=== PATIENT | female | born 2000 | race Caucasian/White ===

== ENCOUNTER 2021-04-09 13:20 | Inpatient (IN) | payer BC, SELFPAY ==
[~2021-04-09] VITALS: Ht 167.6 cm; Wt 47.5 kg
[2021-04-09 16:00] VITALS: BP 115/67
--- NOTE | 2021-04-09 16:42 | HPEPDOC ---
General Date of Admission Apr 09, 2021 at 15:18 Date of Service: Apr 09, 2021 Chief Complaint The patient is a 21-year-old female admitted with a reason for visit of . Source: Patient History of Present Illness 21 year old female presented to [facility] ED on 04/08/21 and 04/09/21 for abdominal pain for 5 to 6 days. On 04/08/21 she was manged in ED , had a CT abd and pelvis done which was negative and was discharged home. She went back to ED in the am on 04/09/21 because of worsening abdomonal pain with nausea and an episode of vomiting at home. Repeat CT abdomen and pelvis with IV contrast showed 2 separate foci of small bowel to small bowel intussusception in the left mid abdomen in the jejunum. Martina was transferred to our hospital for surgical evaluation. Patient described the pair as crampy coming in waves in the epigastrium and left upper abdomen will start with less intensity and reach a peak when it is 8/10 in intensity then slowly come down. then after a few minutes another wave will start. There is no radiation. Patient also complains of constipation. Last bowel movement was 4 days ago. Reports has not been passing some flatus. patient reports massive weight loss after her Gall bladder surgery. Reports she has lost more than 70 lbs in the past year. Patient is admitted for acute abdominal pain possible Acute intussusception vs other causes. Home Medications Scheduled Omeprazole (Omeprazole) 40 Mg Capsule.dr, 1 CAP PO DAILY Scheduled PRN Dicyclomine HCl (Dicyclomine HCl) 10 Mg Capsule, 10 MG PO TIDP PRN for ABDOMINAL PAIN Tramadol HCl (Tramadol HCl) 50 Mg Tablet, 50 MG PO Q8HP PRN for PAIN LEVEL 5-10 Allergies Coded Allergies: No Known Allergies (Unverified , 04/09/21) Past Medical History Medical History Gall stones s/p cholecystectomy in 2019 Enteritis Family History Significant Family History: Cancer (paternal grand mother with metastatic breast cancer), Other (Mother with gallstones had cholecystectomy at age 27, Fa ther with stomach problems from ) Social History * Smoker: non-smoker Alcohol: occationally Drugs: marijuana A-FIB/CHADSVASC A-FIB History Current/History of A-Fib/PAF?: No Review of Systems Constitutional: Denies: Chills, Fever, Night Sweats Eyes: Denies: Pain, Vision change ENT: Denies: Head Aches, Ear Pain, Dysphagia Skin: Denies: Rash, Lesions, Breakdown Pulmonary: Denies: Dyspnea, Cough Cardiovascular: Denies: Chest Pain, Palpitations, Orthopnea, Paroxysmal Noc. Dyspnea, Lt Headedness Gastrointestinal: Reports: Nausea, Vomiting, Abdominal Pain, Constipation Genitourinary: Denies: Dysuria, Frequency, Incontinence, Retention Hematologic: Denies: Bruising, Bleeding Excessively Musculoskeletal: Denies: Neck Pain, Back Pain, Joint Pain, Muscle Pain, Spasms Neurological: Denies: Weakness, Numbness, Change in speech, Confusion Physical Examination General Exam: Positive: Alert, Cooperative, No Acute Distress, Other (cachestic) Eye Exam: Positive: PERRLA, Conjunctiva & lids normal, EOMI; Negative: Sclera icteric ENT Exam: Positive: Atraumatic, Mucous membr. moist/pink, Pharynx Normal Neck Exam: Positive: Supple; Negative: JVD, thyromegaly Chest Exam: Positive: Clear to auscultation, Normal air movement Heart Exam: Positive: Rate Normal, Regular Rhythm, Normal S1, Normal S2; Negative: Murmurs, Rubs Abdomen Exam: Positive: Normal bowel sounds, Soft, Tenderness (in the epigastrium); Negative: Hepatospenomegaly Extremity Exam: Negative: Clubbing, Cyanosis, Edema Neuro Exam: Positive: Normal Speech, Normal Tone Psych Exam: Positive: Memory Intact, Oriented x 3 Vital Signs Vital Signs Label Value Date Time Patient Temperature 98.0 degrees F 04/09/21 1600 Temperature Source Oral 04/09/21 1600 Pulse 99 04/09/21 1600 Respiratory Rate 18 bpm 04/09/21 1600 Blood Pressure Assessment 115/67 (83) 04/09/21 1600 Bedside Pulse Oximetry 96 % 04/09/21 1600 Item Value Date Time Oxygen Delivery Method Room Air 04/09/21 1600 Assessment/Plan 21 year old female presented to [facility] ED on 04/08/21 and 04/09/21 for abdominal pain for 5 to 6 days. On 04/08/21 she was manged in ED , had a CT abd and pelvis done which was negative and was discharged home. She went back to ED in the am on 04/09/21 because of worsening abdomonal pain with nausea and an episode of vomiting at home. Repeat CT abdomen and pelvis with IV contrast showed 2 separate foci of small bowel to small bowel intussusception in the left mid abdomen in the jejunum. Martina was transferred to our hospital for surgical evaluation. Patient described the pair as crampy coming in waves in the epigastrium and left upper abdomen will start with less intensity and reach a peak when it is 8/10 in intensity then slowly come down. then after a few minutes another wave will start. There is no radiation. Patient also complains of constipation. Last bowel movement was 4 days ago. Reports has not been passing some flatus. patient reports massive weight loss after her Gall bladder surgery. Reports she has lost more than 70 lbs in the past year. Patient is admitted for acute abdominal pain possible Acute intussusception vs other causes. Acute small bowel to small bowel intussusception in jejunum as per CT abdomen Likely due to adhesions We will keep n.p.o., IV fluids, Zofran, morphine and Toradol for pain control, pantoprazole Surgical consult Dr. Stubbs Abdominal pain rule out other causes like Sup mesentric artery syndrome with the massive rapid weight loss pain control with morphine, toradol. Reports no pain when sleeping. Transaminitis Likely due to acute intussusception We will continue to monitor will check hepatitis profile. Hypokalemia Replaced IV Severe protein calorie malnutrition Patient has a BMI of 16.9, Lost > 70 lbs in 1 year. Her albumin is elevated but I think patient is dehydrated at this time so Albumin is higher than expected. Plan / VTE VTE Prophylaxis Ordered?: Yes Anabel Danielson MD Apr 09, 2021 16:42
[2021-04-09] MEDS ORDERED: HOME MED LIST COMPLETE! XX SCH (17:00)
[2021-04-09] MEDS ORDERED: D5W/0.9% SODIUM CHLORIDE 1,000 ML IV SCH (17:00)
[2021-04-09 17:03] LABS: HEMOGLOBIN 12.8 g/dl (12.0-15.5); MEAN CORPUSCULAR HGB CONC 33.7 g/dl (32.0-36.5); PLATELET COUNT, AUTOMATED 288 10^3/uL (150-450); RED BLOOD COUNT 4.42 10^6/uL (4.00-5.40); WHITE BLOOD COUNT 13.2 10^3/uL (4.0-10.0)
[2021-04-09] MEDS: PANTOPRAZOLE 40MG VIAL (C9113 PER 1) IV SCH (17:16)
[2021-04-09 17:26] LABS: ALBUMIN 3.4 GM/DL (3.2-5.2); ALT/SGPT 107 U/L (12-78); BILIRUBIN,TOTAL 1.1 MG/DL (0.2-1.0); BLOOD UREA NITROGEN 5 MG/DL (7-18); CALCIUM LEVEL 8.4 MG/DL (8.5-10.1); CARBON DIOXIDE LEVEL 25 MEQ/L (21-32); CHLORIDE LEVEL 109 MEQ/L (98-107); CREATININE FOR GFR 0.55 MG/DL (0.55-1.30); GLOMERULAR FILTRATION RATE > 60.0 (>60); GLUCOSE, FASTING 80 MG/DL (70-100); POTASSIUM SERUM 3.3 MEQ/L (3.5-5.1); SODIUM LEVEL 140 MEQ/L (136-145); TOTAL PROTEIN 5.8 GM/DL (6.4-8.2)
[2021-04-09] MEDS: SUCRALFATE SUSP 1GM/10ML UD PO SCH ×2 (17:42→20:12)
[2021-04-09] MEDS: KETOROLAC 30 MG/ML 1ML VIAL IV SCH ×2 (17:42→23:37)
[2021-04-09] MEDS: MORPHINE 4 MG/ML 1ML VIAL/SYRINGE (J2270) IV PRN ×2 (17:43→21:27)
[2021-04-09] MEDS: ONDANSETRON 4MG/2ML VIAL IV PRN (21:36)
[2021-04-09] MEDS: KCL 40MEQ IN D5/NS 1000ML 1,000 ML IV SCH (21:40)
[2021-04-09 22:00] VITALS: BP 121/72
[2021-04-10] MEDS: KCL 40MEQ IN D5/NS 1000ML 1,000 ML IV SCH ×4 (04:39→23:38)
[2021-04-10] MEDS: KETOROLAC 30 MG/ML 1ML VIAL IV SCH ×3 (05:11→17:39)
[2021-04-10 06:00] VITALS: BP 110/71
[2021-04-10 06:14] LABS: BASO % 0.4 % (0.0-1.0); EOS # 0.2 10^3/uL (0.0-0.5); EOS % 2.7 % (0.0-3.0); HEMATOCRIT 37.7 % (36.0-47.0); HEMOGLOBIN 12.7 g/dl (12.0-15.5); LYMPH # 2.3 10^3/uL (1.5-5.0); LYMPH % 25.2 % (24.0-44.0); MEAN CORPUSCULAR HGB CONC 33.7 g/dl (32.0-36.5); MEAN CORPUSCULAR VOLUME 86.1 fl (80.0-96.0); MONO # 0.9 10^3/uL (0.0-0.8); MONO % 9.4 % (2.0-8.0); NEUTROPHILS # 5.6 10^3/uL (1.5-8.5); NEUTROPHILS % 61.9 % (36.0-66.0); PLATELET COUNT, AUTOMATED 270 10^3/uL (150-450); RED BLOOD COUNT 4.38 10^6/uL (4.00-5.40)
[2021-04-10 06:38] LABS: BLOOD UREA NITROGEN 3 MG/DL (7-18); CALCIUM LEVEL 8.3 MG/DL (8.5-10.1); CARBON DIOXIDE LEVEL 26 MEQ/L (21-32); CHLORIDE LEVEL 110 MEQ/L (98-107); CREATININE FOR GFR 0.48 MG/DL (0.55-1.30); GLOMERULAR FILTRATION RATE > 60.0 (>60); GLUCOSE, FASTING 101 MG/DL (70-100); POTASSIUM SERUM 3.9 MEQ/L (3.5-5.1); SODIUM LEVEL 139 MEQ/L (136-145)
[2021-04-10] MEDS: MORPHINE 4 MG/ML 1ML VIAL/SYRINGE (J2270) IV PRN ×3 (08:48→17:40)
[2021-04-10] MEDS: SUCRALFATE SUSP 1GM/10ML UD PO SCH ×4 (08:48→21:45)
--- NOTE | 2021-04-10 09:01 | IPNPDOC ---
Text Note Date of Service The patient was seen on 04/10/21. NOTE General surgery. Dr Stubbs The patient is a 21-year-old female transferred from outside hospital related to abdominal pain and intussusception on imaging. This morning, the patient states she is still having abdominal pain. Reports still having crampy pain across the upper abdomen. Requesting pain medication. Afebrile Heart rate 65, respiratory rate 17, blood pressure 110/71, 98% room air Sleeping in bed when we entered the room, easily arousable. Reporting pain and asking for pain medication. Abdomen. Soft, nondistended, tenderness with palpation across the upper abdomen. No edema WBC 9.0, this is decreased from 13.2. Hemoglobin 12.7 Assessment/plan Abdominal pain. CT abdomen/pelvis with IV contrast at outside hospital with report indicating 2 separate foci of small bowel to small bowel intussusception in the left mid abdomen in the jejunum. The patient is reviewed and examined as per Dr. Stubbs this morning. Continue n.p.o. IV fluids 150 mL/h Protonix 40 mg IV. Carafate 1 g before meals at bedtime Zofran as needed Plan for upper GI with small bowel follow-through this morning for further evaluation. Further recommendations as per Dr Stubbs pending review of imaging. VS,Harshadbone, I+O VS, Fishbone, I+O Laboratory Tests 04/09/21 16:39 04/10/21 05:31 Vital Signs Date Time Temp Pulse Resp B/P (MAP) Pulse Ox O2 Delivery O2 Flow Rate FiO2 04/10/21 08:48 16 Room Air 04/10/21 06:00 97.7 65 110/71 (84) 98 I&O- Last 24 Hours up to 6 AM 04/10/21 06:00 Intake Total 0 ml Output Total 0 ml Balance 0 ml Toshia Segovia Apr 10, 2021 09:01
[2021-04-10] MEDS ORDERED: MORPHINE 2 MG/ML 1ML VIAL (J2270) IV ONE ×2 (09:55→21:30)
[2021-04-10] MEDS: LORazepam 2 MG/ML VIAL IV PRN ×3 (10:44→21:46)
[2021-04-10 13:17] LABS: ALBUMIN 3.3 GM/DL (3.2-5.2); ALT/SGPT 196 U/L (12-78); BILIRUBIN,DIRECT 0.2 MG/DL (0.0-0.2); BILIRUBIN,TOTAL 0.5 MG/DL (0.2-1.0); TOTAL PROTEIN 5.5 GM/DL (6.4-8.2)
--- NOTE | 2021-04-10 13:28 | CR ---
CONSULTATION DATE: 04/09/2021 BRIEF HISTORY OF PRESENT ILLNESS: The patient presents to the hospitalist and was admitted to the hospitalist to the floor because of question of intussusception on CT scan which was done without p.o. contrast. In any case, her story is somewhat complicated but goes back several years where she has had some nausea, severe abdominal pain and had upper and lower endoscopies and she is somewhat vague and difficult to get a great history and sequence from her but essentially has had this abdominal pain ongoing for quite a while and that eventually after extensive workup, ended up having her gallbladder out. Once her gallbladder was out, she continued losing more weight has had this chronic abdominal pain continuing on thereafter. She does not describe any history of any significant other issues at this time. Most of what she talks about is abdominal pain and nausea and vomiting. She has not been on any medications, does smoke marijuana. PAST MEDICAL HISTORY: Significant for a history of gallstones, status post cholecystectomy, history of enteritis. PHYSICAL EXAMINATION: General: A tearful, 21-year-old female who looks stated age. HEENT: Unremarkable. Neck: Supple without adenopathy. Lungs: Clear. Heart: Regular. Abdomen: Soft. She does not have any significant distention whatsoever. She has very mild at most tenderness in the epigastric area when I am able to distract her. Neutrally there is no guarding, rebound or peritoneal signs. IMPRESSION/PLAN: The patient has abdominal pain, nausea, vomiting that has been occurring for a long period of time and at this point, the patient was evaluated, discussed for quite a while and during this time, she really had no evidence of crampy abdominal pain, no other significant concerning exams that I was watching for and at this point, I have concerns that the CT scan is wrong given that it was without p.o. contrast and I felt that it was probably that she has no significant amounts of fat and it is very difficult to assess the bowel without p.o. contrast and with extremely limited amount of intra-abdominal fat. Thus, I would be concerned that this may be somewhat misleading and more importantly when I look at the small bowel, it almost appears that there is some mucosal thickening and maybe even edema throughout the bowel much more consistent with an enteritis than it would be with an intussusception. Obviously, she does not have any history of ulcerative colitis or Crohn's disease but at this point, my recommendation is that we keep her NPO overnight and then in the morning plan on an upper GI with small bowel follow-through. Depending on the results then we can determine her next course of action. If this is negative, then I would recommend a GI consult. Unfortunately we do not have GI professional nursing tutor but I feel that this is a chronic issue and thus if this is negative, the upper GI with small bowel follow-through, then attempting to have this worked up by GI as an outpatient would be the next appropriate step. Currently I am not seeing an emergent surgical intervention necessary today and we can determine our next course of action depending on how she is doing. Obviously, another option of what is going on with her is that she has hyperemesis syndrome associated with pot smoking and this once again is out of my expertise realm and would be better addressed by GI.
[2021-04-10 13:36] LABS: HEPATITIS B SURFACE ANTIGEN NEGATIVE (NEGATIVE)
[2021-04-10 14:00] VITALS: BP 104/59
[2021-04-10 14:04] LABS: HEPATITIS B CORE ANTIBODY IGM NEGATIVE (NEGATIVE); HEPATITIS C VIRUS ABY INDEX < 0.0 INDEX (<0.8)
--- NOTE | 2021-04-10 14:25 | IPNPDOC ---
Subjective Date Seen The patient was seen on 04/10/21. Subjective Chief Complaint/HPI Continues to complain of pain crampy in nature asking for more pain meds. Patient was sleeping comfortably. When i woke her up she immediately complained of abdominal pain and asked for morphine. Objective Physical Examination General Exam: Positive: Alert, Cooperative, No Acute Distress, Other (ca chestic) Eye Exam: Positive: PERRLA, Conjunctiva & lids normal, EOMI; Negative: Sclera icteric ENT Exam: Positive: Atraumatic, Mucous membr. moist/pink, Pharynx Normal Neck Exam: Positive: Supple; Negative: JVD, thyromegaly Chest Exam: Positive: Clear to auscultation, Normal air movement Heart Exam: Positive: Rate Normal, Regular Rhythm, Normal S1, Normal S2; Negative: Murmurs, Rubs Abdomen Exam: Positive: Normal bowel sounds, Soft, Tenderness (in the epigas trium); Negative: Hepatospenomegaly Extremity Exam: Negative: Clubbing, Cyanosis, Edema Neuro Exam: Positive: Normal Speech, Normal Tone Psych Exam: Positive: Memory Intact, Oriented x 3 Assessment /Plan Assessment 21 year old female presented to [facility] ED on 04/08/21 and 04/09/21 for abdominal pain for 5 to 6 days. On 04/08/21 she was manged in ED , had a CT abd and pelvis done which was negative and was discharged home. She went back to ED in the am on 04/09/21 because of worsening abdomonal pain with nausea and an episode of vomiting at home. Repeat CT abdomen and pelvis with IV contrast showed 2 separate foci of small bowel to small bowel intussusception in the left mid abdomen in the jejunum. Martina was transferred to our hospital for surgical evaluation. Patient described the pair as crampy coming in waves in the epigastrium and left upper abdomen will start with less intensity and reach a peak when it is 8/10 in intensity then slowly come down. then after a few minut es another wave will start. There is no radiation. Patient also complains of constipation. Last bowel movement was 4 days ago. Reports has not been passing some flatus. patient reports massive weight loss after her Gall bladder surgery. Reports she has lost more than 70 lbs in the past year. Patient is admitted for acute abdominal pain possible Acute intussusception vs other causes. Acute small bowel to small bowel intussusception in jejunum as per CT abdomen Likely due to adhesions We will keep n.p.o., IV fluids, Zofran, morphine and Toradol for pain control, pantoprazole Surgical consult Dr. Stubbs planned for small bowel follow through Abdominal pain Acute on chronic. CT abd suggestive of Intussusception however need to rule out rule out other causes like Peptic ulcer disease, gastritis, Sup mesentric artery syndrome with the massive rapid weight loss. Pain is much more in comparison to physical findings. Asking for dilaudid and fentanyl. pain control with morphine, toradol. Reports no pain when sleeping. Transaminitis etiology to be determined. Hepatitis B and C negative Hypokalemia Replaced IV Severe protein calorie malnutrition Patient has a BMI of 16.9, Lost > 70 lbs in 1 year. Her albumin is elevated but I think patient is dehydrated at this time so Al bumin is higher than expected. Plan/VTE VTE Prophylaxis Ordered?: Yes VS, I&O, [facility] Vital Signs/I&O Vital Signs Date Time Temp Pulse Resp B/P (MAP) Pulse Ox O2 Delivery O2 Flow Rate FiO2 04/10/21 10:54 16 04/10/21 08:48 Room Air 04/10/21 06:00 97.7 65 110/71 (84) 98 I&O- Last 24 Hours up to 6 AM 04/10/21 07:00 Intake Total 0 ml Output Total 0 ml Balance 0 ml Laboratory Data 24H LABS Laboratory Tests 2 04/09/21 16:39: Nucleated Red Blood Cells % (auto) 0.0, Anion Gap 6L, Glomerular Filtration Rate > 60.0, Lactic Acid Level 0.7, Calcium Level 8.4L, Total Bilirubin 1.1H, Aspa rtate Amino Transf (AST/SGOT) 181H, Alanine Aminotransferase (ALT/SGPT) 107H, Alkaline Phosphatase 108, Total Protein 5.8L, Albumin 3.4, Albumin/Globulin Ratio 1.4 04/09/21 17:54: Coronavirus (COVID-19)(PCR) NEGATIVE 04/10/21 05:31: Nucleated Red Blood Cells % (auto) 0.0, Anion Gap 3L, Glomerular Filtration Rate > 60.0, Calcium Level 8.3L, Immature Granulocyte % (Auto) 0.4, Neutrophils (%) (Auto) 61.9, Lymphocytes (%) (Auto) 25.2, Monocytes (%) (Auto) 9.4H, Eosinophils (%) (Auto) 2.7, Basophils (%) (Auto) 0.4, Neutrophils # (Auto) 5.6, Lymphocytes # (Auto) 2.3, Monocytes # (Auto) 0.9H, Eosinophils # (Auto) 0.2, Basophils # (Auto) 0.0 04/10/21 10:26: Total Bilirubin 0.5#, Aspartate Amino Transf (AST/SGOT) 103H, Alanine Aminotrans ferase (ALT/SGPT) 196H, Alkaline Phosphatase 105, Total Protein 5.5L, Albumin 3.3, Albumin/Globulin Ratio 1.5, Direct Bilirubin 0.2, Hepatitis B Surface Antigen NEGATIVE, Hepatitis B Core IgM Antibody NEGATIVE, Hepatitis C Antibody Index < 0.0 CBC/BMP Laboratory Tests 04/09/21 16:39 04/10/21 05:31 Anabel Danielson MD Apr 10, 2021 14:25
[2021-04-10] MEDS: NICOTINE 21MG/24HR 1 EA TRANSDERMAL TD SCH (16:27)
[2021-04-10] MEDS: PANTOPRAZOLE 40MG VIAL (C9113 PER 1) IV SCH (17:38)
[2021-04-10] MEDS ORDERED: LORazepam 2 MG/ML VIAL As Ordered ONE (21:11)
[2021-04-10 22:00] VITALS: BP 117/78
[2021-04-11] MEDS: MORPHINE 4 MG/ML 1ML VIAL/SYRINGE (J2270) IV PRN ×6 (03:14→20:50)
[2021-04-11] MEDS: KCL 40MEQ IN D5/NS 1000ML 1,000 ML IV SCH ×2 (05:33→13:00)
[2021-04-11] MEDS: KETOROLAC 30 MG/ML 1ML VIAL IV SCH ×4 (05:33→17:56)
[2021-04-11 05:44] LABS: BASO % 0.6 % (0.0-1.0); EOS # 0.5 10^3/uL (0.0-0.5); EOS % 7.6 % (0.0-3.0); HEMATOCRIT 36.5 % (36.0-47.0); HEMOGLOBIN 12.1 g/dl (12.0-15.5); LYMPH # 2.2 10^3/uL (1.5-5.0); LYMPH % 31.6 % (24.0-44.0); MEAN CORPUSCULAR HEMOGLOBIN 29.2 pg (27.0-33.0); MEAN CORPUSCULAR HGB CONC 33.2 g/dl (32.0-36.5); MONO # 0.7 10^3/uL (0.0-0.8); MONO % 9.5 % (2.0-8.0); NEUTROPHILS # 3.5 10^3/uL (1.5-8.5); NEUTROPHILS % 50.4 % (36.0-66.0); PLATELET COUNT, AUTOMATED 257 10^3/uL (150-450); RED BLOOD COUNT 4.15 10^6/uL (4.00-5.40); WHITE BLOOD COUNT 6.9 10^3/uL (4.0-10.0)
[2021-04-11 06:00] VITALS: BP 109/72
[2021-04-11 06:08] LABS: BLOOD UREA NITROGEN 1 MG/DL (7-18); CALCIUM LEVEL 8.6 MG/DL (8.5-10.1); CARBON DIOXIDE LEVEL 25 MEQ/L (21-32); CHLORIDE LEVEL 108 MEQ/L (98-107); CREATININE FOR GFR 0.45 MG/DL (0.55-1.30); GLOMERULAR FILTRATION RATE > 60.0 (>60); GLUCOSE, FASTING 106 MG/DL (70-100); POTASSIUM SERUM 4.3 MEQ/L (3.5-5.1); SODIUM LEVEL 139 MEQ/L (136-145)
[2021-04-11] MEDS: SUCRALFATE SUSP 1GM/10ML UD PO SCH ×4 (07:30→20:49)
[2021-04-11] MEDS ORDERED: E-Z-PAQUE 96% w/w SUSP 176GM BTL As Ordered ONE (07:46)
[2021-04-11] MEDS ORDERED: E-Z-GAS II EFFERVESCENT PACKET (SODIUM BICARB./CITRIC ACID/SIMETHICONE) As Ordered ONE (07:46)
[2021-04-11] MEDS ORDERED: E-Z-HD 98% w/w 340GM SUSP BTL As Ordered ONE (07:46)
[2021-04-11 08:39] LABS: C REACTIVE PROTEIN QUANTITATIV < 0.30 MG/DL (0.00-0.30)
[2021-04-11 09:33] LABS: ERYTHROCYTE SEDIMENTATION RATE 3 mm/hr (0-20)
[2021-04-11] MEDS: NICOTINE 21MG/24HR 1 EA TRANSDERMAL TD SCH (11:13)
[2021-04-11 12:48] LABS: MONO REFLEX EBV COMP NEGATIVE (NEGATIVE)
[2021-04-11] MEDS: LORazepam 0.5 MG TAB PO PRN (12:53)
[2021-04-11 13:32] LABS: HEPATITIS A ANTIBODY IGM NEGATIVE (NEGATIVE); HEPATITIS B CORE ANTIBODY IGM NEGATIVE (NEGATIVE); HEPATITIS B SURFACE ANTIGEN NEGATIVE (NEGATIVE); HEPATITIS C VIRUS ABY INDEX < 0.0 INDEX (<0.8)
[2021-04-11 14:00] VITALS: BP_SYST 122
[2021-04-11 14:20] LABS: ALBUMIN 4.2 GM/DL (3.2-5.2); ALT/SGPT 158 U/L (12-78); BILIRUBIN,DIRECT 0.2 MG/DL (0.0-0.2); BILIRUBIN,TOTAL 0.6 MG/DL (0.2-1.0); TOTAL PROTEIN 6.9 GM/DL (6.4-8.2)
--- NOTE | 2021-04-11 17:08 | IPNPDOC ---
Subjective Date Seen The patient was seen on 04/11/21. Subjective Chief Complaint/HPI Continues to complain of abdominal pain and asking for morphine. Patients having bouts of crying since yesterday due to relationship problems. Has been saying wants to leave AMA. Has been npo for 2 days and has not asked for any food or drinks in this time. No fever or chills. No documented bowel movement. Objective Physical Examination General Exam: Positive: Alert, Cooperative, No Acute Distress, Other (cachestic) Eye Exam: Positive: PERRLA, Conjunctiva & lids normal, EOMI; Negative: Sclera icteric ENT Exam: Positive: Atraumatic, Mucous membr. moist/pink, Pharynx Normal Neck Exam: Positive: Supple; Negative: JVD, thyromegaly Chest Exam: Positive: Clear to auscultation, Normal air movement Heart Exam: Positive: Rate Normal, Regular Rhythm, Normal S1, Normal S2; Negative: Murmurs, Rubs Abdomen Exam: Positive: Normal bowel sounds, Soft, Tenderness (in the epigastrium); Negative: Hepatospenomegaly Extremity Exam: Negative: Clubbing, Cyanosis, Edema Neuro Exam: Positive: Normal Speech, Normal Tone Psych Exam: Positive: Memory Intact, Oriented x 3 Assessment /Plan Assessment 21 year old female presented to [facility] ED on 04/08/21 and 04/09/21 for abdominal pain for 5 to 6 days. On 04/08/21 she was manged in ED , had a CT abd and pelvis done which was negative and was discharged home. She went back to ED in the am on 04/09/21 because of worsening abdominal pain with nausea and an episode of vomiting at home. Repeat CT abdomen and pelvis with IV contrast showed 2 separate foci of small bowel to small bowel intussusception in the left mid abdomen in the jejunum. Martina was transferred to our hospital for surgical evaluation. Patient described the pair as crampy coming in waves in the epigastrium and left upper abdomen will start with less intensity and reach a peak when it is 8/10 in intensity then slowly come down. then after a few minutes another wave will start. There is no radiation. Patient also complains of constipation. Last bowel movement was 4 days ago. Reports has not been passing some flatus. patient reports massive weight loss after her Gall bladder surgery. Reports she has lost more than 70 lbs in the past year. Patient is admitted for acute abdominal pain possible Acute intussusception vs other caus es. Abdominal pain Acute on chronic. CT abd suggestive of Intussusception however need to rule out rule out other causes like Peptic ulcer disease, gastritis, Sup mesentric artery syndrome with the massive rapid weight loss. Pain is much more in comparison to physical findings. Asked for dilaudid and fentanyl. pain control with morphine, toradol. Needing disproportionate amount of narcotics in minimal abdominal findings. Reports no pain when sleeping. Acute small bowel to small bowel intussusception in jejunum as per CT abdomen Surgical consult Dr. Stubbs Had upper GI with small bowel follow through does not seem to be obstructed allow clear liquids. Uncontrolled abdominal pain using too much narcotics which is does not match her normal abdominal findings I highly suspected there may be a pain med seeking behaviour present and psychosomatic component to her pain Transaminitis improving, Monoscreen negative, Hepatitis B and C negative Hypokalemia replaced Severe protein calorie malnutrition Patient has a BMI of 16.9, Lost > 70 lbs in 1 year. She may have a eating disorder. Emotional Lability/ relationship problems. Patient constantly crying since yesterday. She is having issues with her marriage and her common law was leaving her. They have been together for 3 years and had a ceremony earlier this year. Now he was leaving and she does not have anywhere stay here, does not know anybody here. Apparently has been [facility] in the [facility] as he lost his ID 4 months ago , [place] and so cannot get a hotel. They were moving with the [facility] from place to place and staying at motels with her ID. will give ativan prn. Plan/VTE VTE Prophylaxis Ordered?: Yes VS, I&O, 24H, Fishbone Vital Signs/I&O Vital Signs Date Time Temp Pulse Resp B/P (MAP) Pulse Ox O2 Delivery O2 Flow Rate FiO2 04/11/21 14:00 98.3 93 18 122/ (40) 96 Room Air I&O- Last 24 Hours up to 6 AM 04/11/21 06:00 Intake Total 900 ml Output Total 0 ml Balance 900 ml Laboratory Data 24H LABS Laboratory Tests 2 04/11/21 05:10: Immature Granulocyte % (Auto) 0.3, Neutrophils (%) (Auto) 50.4, Lymphocytes (%) (Auto) 31.6, Monocytes (%) (Auto) 9.5H, Eosinophils (%) (Auto) 7.6H, Basophils (%) (Auto) 0.6, Neutrophils # (Auto) 3.5, Lymphocytes # (Auto) 2.2, Monocytes # (Auto) 0.7, Eosinophils # (Auto) 0.5, Basophils # (Auto) 0.0, Nucleated Red Blood Cells % (auto) 0.0, Erythrocyte Sedimentation Rate 3, Anion Gap 6L, Glomerular Filtration Rate > 60.0, Calcium Level 8.6, C-Reactive Protein, Quantitative < 0.30 04/11/21 11:45: Total Bilirubin 0.6, Direct Bilirubin 0.2, Aspartate Amino Transf (AST/SGOT) 39H, Alanine Aminotransferase (ALT/SGPT) 158H, Alkaline Phosphatase 115, Total Protein 6.9#, Albumin 4.2#, Albumin/Globulin Ratio 1.6, Hepatitis A IgM Antibody NEGATIVE, Hepatitis B Surface Antigen NEGATIVE, Hepatitis B Core IgM Antibody NEGATIVE, Hepatitis C Antibody Index < 0.0, Monoscreen NEGATIVE CBC/BMP Laboratory Tests 04/11/21 05:10 Anabel Danielson MD Apr 11, 2021 17:08
[2021-04-11] MEDS: PANTOPRAZOLE 40MG VIAL (C9113 PER 1) IV SCH (17:55)
[2021-04-11] MEDS: DICYCLOMINE 10 MG CAP PO SCH ×2 (17:55→20:49)
[2021-04-11] MEDS: ONDANSETRON 4MG/2ML VIAL IV PRN (20:49)
[2021-04-11 22:00] VITALS: BP 109/72
[2021-04-12] MEDS: KETOROLAC 30 MG/ML 1ML VIAL IV SCH ×3 (00:57→11:07)
[2021-04-12 06:00] VITALS: BP 101/61
[2021-04-12] MEDS: LORazepam 0.5 MG TAB PO PRN ×2 (06:03→14:30)
[2021-04-12] MEDS: DICYCLOMINE 10 MG CAP PO SCH (08:00)
[2021-04-12] MEDS: NICOTINE 21MG/24HR 1 EA TRANSDERMAL TD SCH (08:01)
[2021-04-12] MEDS: SUCRALFATE SUSP 1GM/10ML UD PO SCH ×2 (08:01→11:07)
[2021-04-12] MEDS: MORPHINE 4 MG/ML 1ML VIAL/SYRINGE (J2270) IV PRN (08:02)
[2021-04-12 08:53] LABS: BASO % 0.5 % (0.0-1.0); EOS # 0.4 10^3/uL (0.0-0.5); EOS % 4.3 % (0.0-3.0); HEMOGLOBIN 12.8 g/dl (12.0-15.5); LYMPH # 1.9 10^3/uL (1.5-5.0); LYMPH % 21.6 % (24.0-44.0); MEAN CORPUSCULAR HEMOGLOBIN 29.2 pg (27.0-33.0); MEAN CORPUSCULAR HGB CONC 33.7 g/dl (32.0-36.5); MEAN CORPUSCULAR VOLUME 86.6 fl (80.0-96.0); MONO # 0.7 10^3/uL (0.0-0.8); MONO % 7.9 % (2.0-8.0); NEUTROPHILS # 5.6 10^3/uL (1.5-8.5); NEUTROPHILS % 65.3 % (36.0-66.0); PLATELET COUNT, AUTOMATED 311 10^3/uL (150-450); RED BLOOD COUNT 4.39 10^6/uL (4.00-5.40); WHITE BLOOD COUNT 8.6 10^3/uL (4.0-10.0)
[2021-04-12 09:32] LABS: BLOOD UREA NITROGEN 7 MG/DL (7-18); CALCIUM LEVEL 9.3 MG/DL (8.5-10.1); CARBON DIOXIDE LEVEL 31 MEQ/L (21-32); CHLORIDE LEVEL 102 MEQ/L (98-107); CREATININE FOR GFR 0.68 MG/DL (0.55-1.30); GLOMERULAR FILTRATION RATE > 60.0 (>60); GLUCOSE, FASTING 95 MG/DL (70-100); POTASSIUM SERUM 4.6 MEQ/L (3.5-5.1); SODIUM LEVEL 135 MEQ/L (136-145)
[2021-04-12] MEDS ORDERED: traMADol 50 MG TAB PO PRN (10:55)
--- NOTE | 2021-04-12 11:11 | IPNPDOC ---
Text Note Date of Service The patient was seen on 04/12/21. NOTE General surgery. Dr Stubbs The patient is a 21-year-old female transferred from outside hospital related to abdominal pain and intussusception on imaging. This morning, the patient states she is still having abdominal pain and states she is not feeling any better. States she feels bloated, still having crampy pain across the upper abdomen. She is still using IV morphine and IV Toradol, the patient states that yesterday nursing was late bringing the pain medication so she took a warm shower which seemed to help her nausea and abdominal pain. Afebrile VSS Sleeping in bed, in dark room, easily arousable. Reporting pain at time of exam. Lungs are clear to auscultation S1-S2 regular rate rhythm Abdomen. Soft, nondistended, tenderness with palpation across the upper abdomen. No edema WBC 8.6 Hemoglobin 12.8 Hepatitis panel negative [place] screen negative IBD panel pending, EBV pending, celiac panel pending Assessment/plan Abdominal pain. The patient is reviewed as per Dr. Stubbs. Tolerating clear liquids Protonix 40 mg IV. Carafate 1 g before meals at bedtime Zofran as needed Dicyclomine 10 mg p.o. 3 times daily The patient does report that yesterday her symptoms seem to improve with a warm shower. She states she does use marijuana. She states her symptoms are not related to cannabinoid hyperemesis syndrome. She states she was told this in past but she stopped using marijuana for 6 weeks and her symptoms did not improve. Upper GI with small bowel follow-through done yesterday, report is pending. Further recommendations as per Dr Stubbs pending review of imaging and report. VS,Fishbone, I+O VS, Fishbone, I+O Laboratory Tests 04/12/21 08:30 Vital Signs Date Time Temp Pulse Resp B/P (MAP) Pulse Ox O2 Delivery O2 Flow Rate FiO2 04/12/21 08:02 17 Room Air 04/12/21 06:00 98.0 77 101/61 (74) 99 I&O- Last 24 Hours up to 6 AM 04/12/21 05:59 Intake Total 1000 ml Balance 1000 ml Toshia Segovia Apr 12, 2021 09:47
[2021-04-12 11:41] LABS: ALBUMIN 3.5 GM/DL (3.2-5.2); ALT/SGPT 101 U/L (12-78); BILIRUBIN,DIRECT 0.2 MG/DL (0.0-0.2); BILIRUBIN,TOTAL 0.5 MG/DL (0.2-1.0); TOTAL PROTEIN 5.9 GM/DL (6.4-8.2)
[2021-04-12 14:00] VITALS: BP 101/62
[2021-04-12] MEDS ORDERED: OMEP40CA4 PO ×2 (14:20→14:40)
[2021-04-12] MEDS ORDERED: TRAM50TA2 PO ×2 (14:20→14:40)
[2021-04-12] MEDS ORDERED: DICY1CAP8 PO ×2 (14:20→14:40)
--- NOTE | 2021-04-12 15:25 | REP ---
INDICATION: abd pain. COMPARISON: None. TECHNIQUE: The procedure was performed under the direct supervision of Dr. Weaver. The images were reviewed with Dr. Weaver. Liquid barium and gas producing crystals were given in the erect position as well as liquid barium in the prone oblique position in order to perform a double contrast upper GI examination. Additionally liquid barium was given at the end of the examination in order to perform a small bowel follow through. A combination od fluoroscopy, spot films and last image hold technology was utilized, 2 minutes of fluoro time was utilized for this procedure. FINDINGS: The auto roller film shows no organomegaly or pathological masses. The intestinal gas pattern is non-specific. There are surgical clips noted in the right upper quadrant. The oral and pharyngeal stages of deglutition are unremarkable. Esophageal transport is prompt and efficient and there is no esophagitis, stricture, mucosal ring or hiatal hernia. Gastroesophageal reflux is not demonstrated on this examination. The stomach nicolas are normally outlined. The rugal folds are smooth and regular. There is no gastritis neoplasm or ulcer disease. The duodenal nicolas are normally outlined . The mucosal folds are smooth and regular. There is no duodenitis pancreatitis peptic ulcer disease or neoplasm. The visualized portion of the proximal small bowel appears normal in course and caliber. The barium column was followed through the small bowel to the level of the terminal ileum. Small bowel transit time is approximately 70 minutes. During fluoroscopy gentle palpation shows all loops are freely movable and pliable. There are no fixed or angulated loops. The small bowel mucosal pattern is normal in course and caliber. There is no transition to suggest a partial small-bowel obstruction. Spot filming of the terminal ileum shows it to be unremarkable. IMPRESSION: Essentially unremarkable double contrast upper GI and small bowel follow through examination. <Electronically signed by Daren Guerrero > 04/11/21 1709 <Electronically signed by Ryan Weaver > 04/11/21 0533
[2021-04-12 17:07] LABS: EBV AB TO NUCLEAR ANTIGEN <18.0 U/mL (0.0-17.9); EBV VIRAL CAPSID AG IgM <36.0 U/mL (0.0-35.9)
--- NOTE | 2021-04-13 11:40 | DS.PDOC ---
Discharge Summary General Date of Admission Apr 09, 2021 at 15:18 Date of Discharge 04/12/21 Discharge Summary PROCEDURES PERFORMED DURING STAY: [None]. DISCHARGE DIAGNOSES: Abdominal pain etiology undetermined ? psychosomatic ? marijuana Intussusception ruled out Hypokalemia Transaminitis Severe protein calorie malnutrition ? Eating disorder Emotional lability and emotional problems COMPLICATIONS/CHIEF COMPLAINT: Abdominal Pain. HOSPITAL COURSE: 21 [facility] 04/09/21 for abdominal pain for 5 to 6 days. On 04/08/21 she was manged in ED , had a CT abd and pelvis done which was negative and was discharged home. She went back to ED in the am on 04/09/21 because of worsening abdominal pain with nausea and an episode of vomiting at home. Repeat CT abdomen and pelvis with IV contrast showed 2 separate foci of small bowel to small bowel intussusception in the left mid abdomen in the jejunum. Martina was transferred to our hospital for surgical evaluation. Patient described the pair as crampy coming in waves in the epigastrium and left upper abdomen will start with less intensity and reach a peak when it is 8/10 in intensity then slowly come down. then after a few minutes another wave will start. There is no radiation. Patient also complains of constipation. Last bowel movement was 4 days ago. Reports has not been passing some flatus. patient reports massive weight loss after her Gall bladder surgery. Reports she has lost more than 70 lbs in the past year. Patient is admitted for acute abdominal pain possible Acute intussusception vs other causes. Patient had a barium swallow wit small bowel follow through which was n ormal. So intussusception was ruled out. Did not show any ulcers. Abdominal pain Acute on chronic. Etiology undetermined. Intussusception was ruled out. Upper GI series with small bowel follow through did not show any abnormality though CT suggested Intussusception. Pain is much more in comparison to physical findings. May have a psychosomatic component. Reports no pain when sleeping. Will manage for Peptic ulcer disease will give tramadol on discharge Transaminitis improving, Monoscreen negative, Hepatitis B and C negative Hypokalemia replaced Severe protein calorie malnutrition Patient has a BMI of 16.9, Lost > 70 lbs in 1 year. She may have a eating disorder. Emotional Lability/ relationship problems. Patient constantly crying since yesterday. She is having issues with her marriage and her common law was leaving her. They have been together for 3 years and had a ceremony earlier this year. Now he was leaving and she does not have anywhere stay here, does not know anybody here. Apparently has been sleeping in the car at the [facility] as he lost his ID 4 months ago , [place] and so cannot get a hotel. They were moving with the fair from place to place and staying at motels with her ID. DISCHARGE MEDICATIONS: Please see below. ALLERGIES: Please see below. PHYSICAL EXAMINATION ON DISCHARGE: VITAL SIGNS: Please see below. General Exam: Positive: Alert, Cooperative, No Acute Distress, Other (cachestic) Eye Exam: Positive: PERRLA, Conjunctiva & lids normal, EOMI; Negative: Sclera icteric ENT Exam: Positive: Atraumatic, Mucous membr. moist/pink, Pharynx Normal Neck Exam: Positive: Supple; Negative: JVD, thyromegaly Chest Exam: Positive: Clear to auscultation, Normal air movement Heart Exam: Positive: Rate Normal, Regular Rhythm, Normal S1, Normal S2; Negative: Murmurs, Rubs Abdomen Exam: Positive: Normal bowel sounds, Soft, Tenderness (in the epigastrium); Negative: Hepatospenomegaly Extremity Exam: Negative: Clubbing, Cyanosis, Edema Neuro Exam: Positive: Normal Speech, Normal Tone Psych Exam: Positive: Memory Intact, Oriented x 3 LABORATORY DATA: Please see below. IMAGING: Upper GI and small bowel follow through Liquid barium and gas producing crystals were given in the erect position as well as liquid barium in the prone oblique position in order to perform a double contrast upper GI examination. Additionally liquid barium was given at the end of the examination in order to perform a small bowel follow through. A combination od fluoroscopy, spot films and last image hold technology was utilized, 2 minutes of fluoro time was utilized for this procedure. FINDINGS: The supervisor meter shop film shows no organomegaly or pathological masses. The intestinal gas pattern is non-specific. There are surgical clips noted in the right upper quadrant. The oral and pharyngeal stages of deglutition are unremarkable. Esophageal transport is prompt and efficient and there is no esophagitis, stricture, mucosal ring or hiatal hernia. Gastroesophageal reflux is not demonstrated on this examination. The stomach nicolas are normally outlined. The rugal folds are smooth and regular. There is no gastritis neoplasm or ulcer disease. The duodenal nicolas are normally outlined . The mucosal folds are smooth and regular. There is no duodenitis pancreatitis peptic ulcer disease or neoplasm. The visualized portion of the proximal small bowel appears normal in course and caliber. The barium column was followed through the small bowel to the level of the terminal ileum. Small bowel transit time is approximately 70 minutes. During fluoroscopy gentle palpation shows all loops are freely movable and pliable. There are no fixed or angulated loops. The small bowel mucosal pattern is normal in course and caliber. There is no transition to suggest a partial small-bowel obstruction. Spot filming of the terminal ileum shows it to be unremarkable. IMPRESSION: Essentially unremarkable double contrast upper GI and small bowel follow through examination. ACTIVITY: [As tolerated]. DIET: Low residue diet DISPOSITION: 01 Home, Self-Care. DISCHARGE INSTRUCTIONS: Follow up With PCP in 1 week Will need Referral to GI and Surgery through PCP. ITEMS TO FOLLOWUP ON ON OUTPATIENT: IBD panel pending, EBV pending, celiac panel pending DISCHARGE CONDITION: [Stable]. TIME SPENT ON DISCHARGE: 35 minutes. Vital Signs/I&Os Vital Signs Date Time Temp Pulse Resp B/P (MAP) Pulse Ox O2 Delivery O2 Flow Rate FiO2 04/12/21 14:00 98.5 94 18 101/62 (75) 98 Room Air I&O- Last 24 Hours up to 6 AM 04/13/21 06:00 Intake Total 120 ml Balance 120 ml Discharge Medications Scheduled Omeprazole (Omeprazole) 40 Mg Capsule.dr, 1 CAP PO DAILY Scheduled PRN Dicyclomine HCl (Dicyclomine HCl) 10 Mg Capsule, 10 MG PO TIDP PRN for ABDOMINAL PAIN Tramadol HCl (Tramadol HCl) 50 Mg Tablet, 50 MG PO Q8HP PRN for PAIN LEVEL 5-10 Allergies Coded Allergies: No Known Allergies (Unverified , 04/09/21) Anabel Danielson MD Apr 13, 2021 11:40
--- NOTE | 2021-04-13 11:56 | IPNPDOC ---
Text Note Date of Service The patient was seen on 04/13/21. NOTE Our PIC Jose Antonio called patient on the the number in our file to make an appointment with a primary care provider but patient hung up and then did not steel pickler the phone again. VS,Fishbone, I+O VS, Fishbone, I+O Vital Signs Date Time Temp Pulse Resp B/P (MAP) Pulse Ox O2 Delivery O2 Flow Rate FiO2 04/12/21 14:00 98.5 94 18 101/62 (75) 98 Room Air I&O- Last 24 Hours up to 6 AM 04/13/21 06:00 Intake Total 120 ml Balance 120 ml Anabel Danielson MD Apr 13, 2021 11:56
[2021-04-13 15:07] LABS: Chitobioside Carbohydrat (ACCA 3 units (0-90); Laminaribioside Carbohyd (ALCA 36 units (0-60); Mannobioside Carbohydrat (AMCA 44 units (0-100); Saccharomyces cerevisiae IgG A 7 units (0-50)
== END 2021-04-12 15:04 | disposition home or self-care (01) | DRG 251 ==
LOC: M MSPAV 15:18
PROVIDERS: ADMIT Internal Medicine Nephrology; ATTEND Internal Medicine Nephrology
DX: R10.9 Unspecified abdominal pain (principal); E43 Unspecified severe protein-calorie malnutrition; R74.01 Elevation of levels of liver transaminase levels; R11.2 Nausea with vomiting, unspecified; F12.188 Cannabis abuse with other cannabis-induced disorder; E87.6 Hypokalemia; E86.0 Dehydration; F50.9 Eating disorder, unspecified; Z90.49 Acquired absence of other specified parts of digestive tract